=== PATIENT | male | born 1950 | race African-American/Black ===

== ENCOUNTER 2019-05-22 01:11 | Inpatient (IN) | payer OTHER, MEDICAID ==
[~2019-05-22] VITALS: Ht 165.1 cm; Wt 75.3 kg
[2019-05-22] VITALS (14 sets, daily range): BP systolic 110–157; BP diastolic 67–98
[2019-05-22] MEDS ORDERED: PREDNISONE 20MG TABLET PO STA (02:26)
[2019-05-22] MEDS ORDERED: IPRATROPIUM BROMIDE (0.02%) 0.5MG/2.5ML NEB HHN STA (02:26)
[2019-05-22] MEDS ORDERED: ALBUTEROL (0.083%) 2.5MG/3ML NEB HHN STA (02:26)
[2019-05-22 02:44] LABS: BASOPHILS % 0.5 % (0.0-2.0); EOSINOPHILS % 0.1 % (0.0-5.0); HEMATOCRIT. 40.3 % (42.0-52.0); HEMOGLOBIN. 13.4 g/dL (14.0-18.0); LYMPHOCYTES % 14.3 % (20.0-50.0); MEAN CORPUSCULAR HEMOGLOBIN 27.6 pg (28.0-32.0); MEAN PLATELET VOLUME 8.1 fl (7.4-10.4); MONOCYTES % 8.9 % (2.0-8.0); NEUTROPHILS % 76.2 % (40.0-76.0); PLATELET 161 x1000/uL (130-400); RED BLOOD CELL COUNT 4.85 mill/uL (4.7-6.1); RED CELL DISTRIBUTION WIDTH 18.8 % (11.6-14.6)
[2019-05-22 02:47] LABS: CHLORIDE 76 mEq/L (98-107)
[2019-05-22] MEDS ORDERED: SODIUM CHLORIDE 0.9% 1,000 ML IV ONE ×2 (02:58→03:15)
[2019-05-22 03:56] LABS: BG BASE EXCESS 4.7 mmol/L (-2.0-2.0); BG CARBOXYHEMOGLOBIN 1.5 % (0.5-1.5); BG DEOXYHEMOGLOBIN 0.5 % (0.0-5.0); BG FRACTION INSPIRED OXYGEN 100; BG HCO3 ACT 30.1 mmol/L (22.0-26.0); BG METHEMOGLOBIN 0.4 % (0.0-1.5); BG OXYGEN SATURATION 99.5 % (92.0-98.5); BG OXYHEMOGLOBIN 97.6 % (94.0-97.0); BG PCO2 47.6 mmHg (35.0-45.0); BG PH 7.419 (7.350-7.450); BG PO2 271.7 mmHg (75.0-100.0); BG SAMPLE SITE RIGHT BRACHIAL; BG TOTAL HEMOGLOBIN 14.1 g/dL (12.0-18.0); BG VENT MODE MASK - NRB
[2019-05-22] MEDS ORDERED: ONDANSETRON HCL 4MG/2ML INJ IV ONE (05:00)
[2019-05-22] MEDS ORDERED: HYDROCODONE/ACETAMINOPHEN 5/325MG TABLET PO PRN (07:00)
[2019-05-22] MEDS ORDERED: MAGNESIUM/ALUMINUM HYDROXIDE/SIMETHICONE 30ML UDC PO PRN (07:00)
[2019-05-22] MEDS ORDERED: DOCUSATE SODIUM 100MG CAPSULE PO PRN (07:00)
[2019-05-22] MEDS ORDERED: DIPHENHYDRAMINE 50MG/ML VIAL IV PRN (07:00)
[2019-05-22] MEDS ORDERED: NA PHOS,M-B/NA PHOS,DI-BA ENEMA 118ML PR PRN (07:00)
[2019-05-22] MEDS ORDERED: ENOXAPARIN 40MG/0.4ML SYR SUBCUT SCH (07:00)
[2019-05-22] MEDS ORDERED: ONDANSETRON HCL 4MG/2ML INJ IV PRN (07:00)
[2019-05-22] MEDS ORDERED: ACETAMINOPHEN 325MG TABLET PO PRN (07:00)
[2019-05-22] MEDS ORDERED: CLONIDINE 0.1MG TABLET PO PRN (07:00)
[2019-05-22] MEDS: LORAZEPAM 2MG/ML CPJ IV PRN ×2 (08:09→19:00)
[2019-05-22] MEDS ORDERED: ASPIRIN 81MG EC TABLET PO SCH (09:00)
[2019-05-22] MEDS: SODIUM CHLORIDE 0.9% 1,000 ML IV SCH (09:15)
[2019-05-22] MEDS ORDERED: POTASSIUM CHLORIDE 20MEQ TABLET SR PO NR (09:30)
[2019-05-22] MEDS: ASPIRIN 81MG TABLET PO SCH (09:59)
[2019-05-22] MEDS ORDERED: IPRATROPIUM BROMIDE (0.02%) 0.5MG/2.5ML NEB HHN SCH (10:45)
[2019-05-22] MEDS: IPRATROPIUM/ALBUTEROL 0.5-3(2.5)MG/3ML NEB NEB PRN (11:50)
[2019-05-22 12:09] LABS: CHLORIDE 79 mEq/L (98-107)
[2019-05-22] MEDS ORDERED: DIGOXIN 500MCG/2ML AMP IV ONE (13:00)
[2019-05-22] MEDS ORDERED: DIGOXIN 500MCG/2ML AMP IV SCH (14:15)
[2019-05-22 16:23] LABS: CHLORIDE 83 mEq/L (98-107)
[2019-05-22 16:32] LABS: CREATINE KINASE 287 IU/L (39-308)
[2019-05-22 16:34] LABS: CREATINE KINASE MB FRACTION 4.8 ng/mL (0.5-3.6)
[2019-05-22] MEDS ORDERED: ENOXAPARIN 60MG/0.6ML SYR SUBCUT NR (18:00)
[2019-05-22 20:28] LABS: INR 1.2; PROTHROMBIN TIME 12.4 sec (9.6-11.0)
[2019-05-22] MEDS: GUAIFENESIN 200MG/10ML SUGAR FREE UDC PO PRN (22:12)
[2019-05-22 23:53] LABS: CREATINE KINASE MB FRACTION 4.4 ng/mL (0.5-3.6)
[2019-05-23] VITALS (41 sets, daily range): BP systolic 90–153; BP diastolic 54–98
[2019-05-23 00:53] LABS: INR 1.3; PROTHROMBIN TIME 13.1 sec (9.6-11.0)
[2019-05-23] MEDS: GUAIFENESIN 200MG/10ML SUGAR FREE UDC PO PRN (04:19)
[2019-05-23] MEDS: MORPHINE SULFATE 2 MG/ML CPJ (NOT FOR IM USE) IV PRN ×3 (04:19→18:29)
[2019-05-23 05:58] LABS: BASOPHILS % 0.3 % (0.0-2.0); EOSINOPHILS % 0.1 % (0.0-5.0); HEMATOCRIT. 41.7 % (42.0-52.0); HEMOGLOBIN. 13.6 g/dL (14.0-18.0); LYMPHOCYTES % 19.3 % (20.0-50.0); MEAN CORPUSCULAR HEMOGLOBIN 27.7 pg (28.0-32.0); MEAN CORPUSCULAR VOLUME 84.7 fL (80.0-94.0); NEUTROPHILS % 67.3 % (40.0-76.0); PLATELET 151 x1000/uL (130-400); RED BLOOD CELL COUNT 4.92 mill/uL (4.7-6.1); RED CELL DISTRIBUTION WIDTH 18.7 % (11.6-14.6)
[2019-05-23 06:01] LABS: CHLORIDE 90 mEq/L (98-107)
[2019-05-23 06:09] LABS: HDL CHOLESTEROL 58 mg/dL (40-59); LDL CHOLESTEROL 93 mg/dL (5-100)
[2019-05-23 06:10] LABS: CREATINE KINASE 263 IU/L (39-308); CREATINE KINASE MB FRACTION 5.3 ng/mL (0.5-3.6); T4 FREE 1.64 ng/dL (0.76-1.46)
[2019-05-23 07:57] LABS: SODIUM URINE (RAW) 29 mEq/L; SODIUM URINE 24 HR 87 mEq/24hr (40-220)
[2019-05-23] MEDS: BUDESONIDE 0.5MG/2ML NEB HHN SCH ×2 (08:16→20:41)
[2019-05-23] MEDS: IPRATROPIUM/ALBUTEROL 0.5-3(2.5)MG/3ML NEB NEB PRN (08:16)
[2019-05-23] MEDS: ASPIRIN 81MG TABLET PO SCH (08:25)
[2019-05-23] MEDS: SODIUM CHLORIDE 0.9% 1,000 ML IV SCH ×2 (08:27→10:09)
[2019-05-23] MEDS: ENOXAPARIN 80MG/0.8ML SYR SUBCUT SCH ×2 (08:29→21:12)
[2019-05-23] MEDS: IPRATROPIUM BROMIDE (0.02%) 0.5MG/2.5ML NEB HHN SCH ×3 (12:01→20:41)
[2019-05-23] MEDS ORDERED: GUAIFENESIN 600MG ER TABLET PO SCH (21:00)
== END 2019-05-23 22:30 | disposition short-term general hospital (02) | DRG 70 ==
LOC: ER 01:11 → MICUNO 03:50 → ENRESERV 15:30
PROVIDERS: ADMIT Internal Medicine; ATTEND Internal Medicine
DX: G93.41 Metabolic encephalopathy (principal); J96.00 Acute respiratory failure, unspecified whether with hypoxia or hypercapnia; E43 Unspecified severe protein-calorie malnutrition; I50.23 Acute on chronic systolic (congestive) heart failure; J44.1 Chronic obstructive pulmonary disease with (acute) exacerbation; E87.1 Hypo-osmolality and hyponatremia; I11.0 Hypertensive heart disease with heart failure; E87.6 Hypokalemia; I25.10 Atherosclerotic heart disease of native coronary artery without angina pectoris; I48.91 Unspecified atrial fibrillation; Z79.01 Long term (current) use of anticoagulants; I25.2 Old myocardial infarction; Z87.891 Personal history of nicotine dependence; Z89.511 Acquired absence of right leg below knee; Z99.81 Dependence on supplemental oxygen
CPT/HCPCS: 36415; 36600; 71046; 80053; 80061; 82375; 82533; 82550; 82553; 82805; 83036; 83880; 83930; 83935; 84132; 84295; 84300; 84439; 84443; 84484; 85025; 85379; 93005; 93306; 93970; 94640; 96360; 99285; J1160; J1650; J2060; J2270; J7030; J7512; J7626

== ENCOUNTER 2019-06-24 15:57 | Inpatient (IN) | payer OTHER, MEDICAID ==
[~2019-06-24] VITALS: Ht 167.6 cm; Wt 89.4 kg
[2019-06-24] MEDS ORDERED: IPRATROPIUM BROMIDE (0.02%) 0.5MG/2.5ML NEB HHN STA (18:21)
[2019-06-24] MEDS ORDERED: DEXAMETHASONE 4MG/ML 1ML VIAL IV ONE (18:30)
[2019-06-24] MEDS ORDERED: MAGNESIUM 2 G PREMIX 50 ML IV ONE (18:30)
[2019-06-24] MEDS ORDERED: MORPHINE SULFATE 2 MG/ML CPJ (NOT FOR IM USE) IV ONE (18:30)
[2019-06-24] MEDS: ALBUTEROL (0.083%) 2.5MG/3ML NEB HHN SCH ×3 (18:45→20:10)
[2019-06-24 18:57] LABS: BASOPHILS % 0.6 % (0.0-2.0); CHLORIDE 103 mEq/L (98-107); EOSINOPHILS % 0.7 % (0.0-5.0); HEMATOCRIT. 39.8 % (42.0-52.0); HEMOGLOBIN. 12.7 g/dL (14.0-18.0); LYMPHOCYTES % 28.7 % (20.0-50.0); MEAN CORPUSCULAR HEMOGLOBIN 27.6 pg (28.0-32.0); MEAN CORPUSCULAR VOLUME 86.3 fL (80.0-94.0); MEAN PLATELET VOLUME 8.6 fl (7.4-10.4); MONOCYTES % 13.4 % (2.0-8.0); NEUTROPHILS % 56.6 % (40.0-76.0); PLATELET 178 x1000/uL (130-400); RED BLOOD CELL COUNT 4.61 mill/uL (4.7-6.1); RED CELL DISTRIBUTION WIDTH 20.2 % (11.6-14.6)
[2019-06-24 19:09] LABS: INR 2.9; PARTIAL THROMBOPLASTIN TIME 35.4 sec (23.4-31.0); PROTHROMBIN TIME 30.1 sec (9.6-11.0)
[2019-06-24] MEDS ORDERED: CEFTRIAXONE 1 G PREMIX 50 ML IV ONE (19:30)
[2019-06-24] MEDS ORDERED: AZITHROMYCIN 500 MG in DEXT 5% WATER 250 ML IV SCH (19:30)
[2019-06-24] MEDS ORDERED: ASPIRIN 325MG EC TABLET PO ONE (20:00)
[2019-06-24] MEDS ORDERED: FUROSEMIDE 40MG/4ML VIAL IVP ONE (20:15)
[2019-06-24] MEDS ORDERED: ONDANSETRON HCL 4MG/2ML INJ IV PRN (21:00)
[2019-06-24] MEDS ORDERED: ACETAMINOPHEN 325MG TABLET PO PRN (21:00)
[2019-06-24] MEDS ORDERED: METHYLPREDNISOLONE SOD SUCC 40 MG/ML VIAL IV SCH (22:57)
[2019-06-25] VITALS (13 sets, daily range): BP systolic 111–133; BP diastolic 52–91
[2019-06-25] MEDS ORDERED: IPRATROPIUM BROMIDE (0.02%) 0.5MG/2.5ML NEB HHN SCH (04:00)
[2019-06-25 06:28] LABS: HEMATOCRIT. 40.4 % (42.0-52.0); MEAN CORPUSCULAR HEMOGLOBIN 27.9 pg (28.0-32.0); MEAN CORPUSCULAR VOLUME 86.8 fL (80.0-94.0); MEAN PLATELET VOLUME 8.6 fl (7.4-10.4); PLATELET 187 x1000/uL (130-400); RED BLOOD CELL COUNT 4.65 mill/uL (4.7-6.1); RED CELL DISTRIBUTION WIDTH 20.1 % (11.6-14.6)
[2019-06-25] MEDS: METHYLPREDNISOLONE SOD SUCC 40 MG/ML VIAL IV SCH ×3 (08:49→23:49)
[2019-06-25 09:47] LABS: *AMPHETAMINES SCREEN URINE NEGATIVE (NEGATIVE); *BARBITURATES SCREEN URINE NEGATIVE (NEGATIVE); *BENZODIAZEPINES SCREEN URINE NEGATIVE (NEGATIVE); *COCAINE SCREEN URINE NEGATIVE (NEGATIVE); CANNABINOID URINE SCREEN NEGATIVE (NEGATIVE); METHADONE URINE SCREEN NEGATIVE (NEGATIVE); OPIATES URINE SCREEN PRESUMTIVE POSITIVE (NEGATIVE); PHENCYCLIDINE URINE SCREEN NEGATIVE (NEGATIVE)
[2019-06-25] MEDS: HYDROCODONE/ACETAMINOPHEN 5/325MG TABLET PO PRN (09:49)
[2019-06-25 09:50] LABS: PLATELET ESTIMATE NORMAL
[2019-06-25] MEDS: FUROSEMIDE 40MG/4ML VIAL IVP SCH (12:13)
[2019-06-25] MEDS ORDERED: IPRATROPIUM/ALBUTEROL 0.5-3(2.5)MG/3ML NEB HHN PRN (14:00)
[2019-06-25 14:54] LABS: CLARITY URINE CLEAR (CLEAR); COLOR URINE YELLOW (YELLOW); KETONES URINE NEGATIVE (NEGATIVE); LEUKOCYTE ESTERASE URINE 2+ (NEGATIVE); NITRITE URINE NEGATIVE (NEGATIVE); OCCULT BLOOD URINE 1+ (NEGATIVE); PH URINE 5.5 (4.5-8.0); PROTEIN URINE TRACE (NEGATIVE); SPECIFIC GRAVITY URINE 1.014 (1.005-1.030)
[2019-06-25] MEDS ORDERED: IPRATROPIUM/ALBUTEROL 0.5-3(2.5)MG/3ML NEB HHN SCH (18:00)
[2019-06-25] MEDS ORDERED: WARF-67 PO (19:08)
[2019-06-26] VITALS (13 sets, daily range): BP systolic 99–130; BP diastolic 43–86
[2019-06-26] MEDS: HYDROCODONE/ACETAMINOPHEN 5/325MG TABLET PO PRN (06:04)
[2019-06-26 06:15] LABS: INR 2.5; PROTHROMBIN TIME 26.2 sec (9.6-11.0)
[2019-06-26 06:19] LABS: HEMATOCRIT. 41.1 % (42.0-52.0); HEMOGLOBIN. 13.1 g/dL (14.0-18.0); MEAN CORPUSCULAR HEMOGLOBIN 27.6 pg (28.0-32.0); MEAN CORPUSCULAR VOLUME 86.4 fL (80.0-94.0); MEAN PLATELET VOLUME 8.7 fl (7.4-10.4); PLATELET 193 x1000/uL (130-400); RED BLOOD CELL COUNT 4.76 mill/uL (4.7-6.1); RED CELL DISTRIBUTION WIDTH 19.9 % (11.6-14.6)
[2019-06-26] MEDS ORDERED: ASPIRIN 81MG TABLET PO SCH (09:00)
[2019-06-26] MEDS: FUROSEMIDE 40MG/4ML VIAL IVP SCH (11:35)
[2019-06-26] MEDS: METHYLPREDNISOLONE SOD SUCC 40 MG/ML VIAL IV SCH (11:35)
[2019-06-26 13:04] LABS: PLATELET ESTIMATE NORMAL
[2019-06-26] MEDS ORDERED: PREDNISONE 20MG TABLET PO SCH (17:00)
[2019-06-26] MEDS ORDERED: WARFARIN SODIUM 2MG TABLET PO SCH (18:00)
[2019-06-26] MEDS ORDERED: DIGO125T80 PO (18:15)
[2019-06-26] MEDS ORDERED: FLUO20CA39 PO (18:16)
[2019-06-26] MEDS ORDERED: TAMS-11 PO (18:17)
[2019-06-26] MEDS ORDERED: FURO40TA5 PO (18:17)
[2019-06-26] MEDS ORDERED: VITA1CAP16 PO (18:17)
[2019-06-26] MEDS ORDERED: METO25TA6 PO (18:19)
[2019-06-26] MEDS ORDERED: HYDR-4009 PO (18:19)
[2019-06-26] MEDS ORDERED: LORA-250 PO ×2 (18:20→18:21)
[2019-06-26] MEDS ORDERED: BENZ100C86 PO (18:21)
[2019-06-26] MEDS ORDERED: DOCU-286 PO (18:22)
[2019-06-26] MEDS ORDERED: SENN-170 PO (18:22)
[2019-06-26] MEDS ORDERED: TRAZ-251 PO (18:23)
[2019-06-26] MEDS ORDERED: GUAIFENESIN 200MG/10ML SUGAR FREE UDC PO PRN (18:30)
== END 2019-06-26 22:35 | disposition short-term general hospital (02) | DRG 205 ==
LOC: ER 15:57 → 5EST 20:50 → EDBEDREQ 20:56 → EDBEDREQTM 20:56 → EDBEDREQSVC 20:56 → ENRESERV 22:48 → 5EST 06-26 12:23
PROVIDERS: ADMIT Internal Medicine; ATTEND Internal Medicine
DX: M94.0 Chondrocostal junction syndrome [Tietze] (principal); E43 Unspecified severe protein-calorie malnutrition; J96.21 Acute and chronic respiratory failure with hypoxia; I50.23 Acute on chronic systolic (congestive) heart failure; J44.1 Chronic obstructive pulmonary disease with (acute) exacerbation; I48.20 Chronic atrial fibrillation, unspecified; N17.9 Acute kidney failure, unspecified; D68.9 Coagulation defect, unspecified; I42.9 Cardiomyopathy, unspecified; I11.0 Hypertensive heart disease with heart failure; I27.20 Pulmonary hypertension, unspecified; E66.9 Obesity, unspecified; Z99.81 Dependence on supplemental oxygen; Z89.511 Acquired absence of right leg below knee; Z87.891 Personal history of nicotine dependence; D64.9 Anemia, unspecified; E11.9 Type 2 diabetes mellitus without complications; Z71.3 Dietary counseling and surveillance; I36.1 Nonrheumatic tricuspid (valve) insufficiency; I25.10 Atherosclerotic heart disease of native coronary artery without angina pectoris; I95.9 Hypotension, unspecified; E11.51 Type 2 diabetes mellitus with diabetic peripheral angiopathy without gangrene; Z68.31 Body mass index [BMI] 31.0-31.9, adult
CPT/HCPCS: 36415; 71045; 80048; 80053; 80305; 81003; 83605; 83880; 84145; 84484; 85025; 93005; 93970; 94640; 97162; 99291; J0456; J0696; J1100; J1940; J2270; J2920; J3475; J7060; J7512